=== PATIENT | male | born 1970 | race Caucasian/White ===

== ENCOUNTER → 2016-09-21 | Emergency (ER) | payer OTHER ==
--- NOTE | 2016-09-22 18:16 | ED MAR SUMMARY ---
..... Medication Administration Record [facility] [address] [place] [id number] Patient: JANETT MCPHERSON Visit ID: [id number] 46y, M Weight: 70.3 kg Height/Length: 66 in BMI: 25 ALLERGIES: No Known Drug Allergy
--- NOTE | 2016-09-22 18:16 | ED MED RECONCILIATION SUMMARY ---
Patient: JANETT MCPHERSON Medication Reconciliation Report [facility] VisitID: [id number] [address] [place] [address] 46y, M Registration Date/Time: 09/21/2016 Weight: 70.3 kg Height/Length: 66 in. BMI: 25.0 ALLERGIES: No Known Drug Allergy The patient's Home Medications are listed below: THE FOLLOWING MEDICATIONS NEED TO BE RECONCILED: Albuterol Sulfate HFA Inhalation The source(s) of the original Home Medication information: patient The following Medications were given to the patient in the Emergency Department: None. The following Medications were prescribed to the patient: None.
--- NOTE | 2016-09-22 18:16 | ED NURSING NOTES ---
Clinical Report - Nurses [facility] [address] [place] [address] 09/21/2016 17:24 Patient: JANETT MCPHERSON TRIAGE Triage time 17:58. Acuity: LEVEL 3. Chief Complaint: INJURY TO LEFT ELBOW. Alert. YAMILEX COMA SCORE: Yamilex Coma Scale: 15- eyes open spontaneously (4); best verbal response- oriented x 4 (5); best motor response- obeys commands (6). --18:04 Ysabel Campos R.N. 17:58 09/21/16. BP: 120/72. HR: 80. RR: 18. O2 saturation: 98%. Temp: 98.6 F (oral). Pain level now: 12/12. --18:04 Ysabel Campos R.N. Weight: 70.3 kg stated. Height/Length: 66 inches Per Patient. BMI: 25. --18:02 Ysabel Campos R.N. Medications Albuterol Sulfate HFA Inhalation. --18:00 Ysabel Campos R.N. Medication/allergy information source: the patient. --18:04 Ysabel Campos R.N. Allergies No Known Drug Allergy. --18:00 Ysabel Campos R.N. History Arrived by private vehicle. Historian: patient. Accompanied by family. Primary physician (none). This occurred today. He probably has foreign material (possible 2 inch lee limb in elbow). PAST MEDICAL HX: Tetanus status: more than 5 years ago. SOCIAL HX: Heavy tobacco smoker- less than 1 pack per day. History of drug use: marijuana. No alcohol use. FALL RISK ASSESSMENT: Fall risk assessment completed. No fall risk identified. FUNCTIONAL ASSESSMENT: Functional assessment: no impairments noted. LEARNING NEEDS ASSESSMENT: The learning needs assessment revealed no barriers. --18:04 Ysabel Campos R.N. PROBLEMS: Psychosis. Substance Abuse. Pancreatitis. URI. Otitis Media. Abrasion(s). Contusion. Lung Disease. Tetanus Status. Bronchitis. Lifestyle / Substance Problems. Anxiety Reaction. Asthma. Bipolar Disorder. --18:02 Ysabel Campos R.N. ADDITIONAL SURGERIES: Abdominal Hernia Repair. Hernia Repair. Umbilical Hernia Repair. --18:02 Ysabel Campos R.N. Assessment GENERAL / NEURO / PSYCH: The patient is awake and alert, is oriented and cooperative and appears uncomfortable. He has poor eye contact. RESPIRATORY: Respirations not labored. SKIN: Skin is warm and dry. --18:04 Ysabel Campos R.N. Interventions ID band on patient. To waiting room. --18:04 Ysabel Campos R.N. DISPOSITION / DISCHARGE Departure time: 0. The patient left the Emergency Department without being seen by a physician. The patient appears to be alert and oriented x4 (pt walked out of the triage room and apparently left the building). Unable to locate patient. He stated is leaving the ED (unknown). Patient left without signing form prior to leaving. He left the Emergency Department ambulatory. ( pt was told there would be a wait due to a full ED, he walked out of the triage room with his daughter, within 5 minutes a nurse went to the waiting room to take him back, he could not be found, he was called twice and I even went to the to look for him). --18:15 Ysabel Campos R.N. Locked/Released at 09/22/2016 18:16 by Ysabel Campos R.N.
--- NOTE | 2016-09-22 18:16 | ED NURSING NOTES ---
Clinical Report - Nurses [facility] [address] [place] [address] 09/21/2016 17:24 Patient: JANETT MCPHERSON TRIAGE Triage time 17:58. Acuity: LEVEL 3. Chief Complaint: INJURY TO LEFT ELBOW. Alert. YAMILEX COMA SCORE: Yamilex Coma Scale: 15- eyes open spontaneously (4); best verbal response- oriented x 4 (5); best motor response- obeys commands (6). --18:04 Ysabel Campos R.N. 17:58 09/21/16. BP: 120/72. HR: 80. RR: 18. O2 saturation: 98%. Temp: 98.6 F (oral). Pain level now: 12/12. --18:04 Ysabel Campos R.N. Weight: 70.3 kg stated. Height/Length: 66 inches Per Patient. BMI: 25. --18:02 Ysabel Campos R.N. Medications Albuterol Sulfate HFA Inhalation. --18:00 Ysabel Campos R.N. Medication/allergy information source: the patient. --18:04 Ysabel Campos R.N. Allergies No Known Drug Allergy. --18:00 Ysabel Campos R.N. History Arrived by private vehicle. Historian: patient. Accompanied by family. Primary physician (none). This occurred today. He probably has foreign material (possible 2 inch lee limb in elbow). PAST MEDICAL HX: Tetanus status: more than 5 years ago. SOCIAL HX: Heavy tobacco smoker- less than 1 pack per day. History of drug use: marijuana. No alcohol use. FALL RISK ASSESSMENT: Fall risk assessment completed. No fall risk identified. FUNCTIONAL ASSESSMENT: Functional assessment: no impairments noted. LEARNING NEEDS ASSESSMENT: The learning needs assessment revealed no barriers. --18:04 Ysabel Campos R.N. PROBLEMS: Psychosis. Substance Abuse. Pancreatitis. URI. Otitis Media. Abrasion(s). Contusion. Lung Disease. Tetanus Status. Bronchitis. Lifestyle / Substance Problems. Anxiety Reaction. Asthma. Bipolar Disorder. --18:02 Ysabel Campos R.N. ADDITIONAL SURGERIES: Abdominal Hernia Repair. Hernia Repair. Umbilical Hernia Repair. --18:02 Ysabel Campos R.N. Assessment GENERAL / NEURO / PSYCH: The patient is awake and alert, is oriented and cooperative and appears uncomfortable. He has poor eye contact. RESPIRATORY: Respirations not labored. SKIN: Skin is warm and dry. --18:04 Ysabel Campos R.N. Interventions ID band on patient. To waiting room. --18:04 Ysabel Campos R.N. DISPOSITION / DISCHARGE Departure time: 0. The patient left the Emergency Department without being seen by a physician. The patient appears to be alert and oriented x4 (pt walked out of the triage room and apparently left the building). Unable to locate patient. He stated is leaving the ED (unknown). Patient left without signing form prior to leaving. He left the Emergency Department ambulatory. ( pt was told there would be a wait due to a full ED, he walked out of the triage room with his daughter, within 5 minutes a nurse went to the waiting room to take him back, he could not be found, he was called twice and I even went to the to look for him). --18:15 Ysabel Campos R.N. Locked/Released at 09/22/2016 18:16 by Ysabel Campos R.N.
--- NOTE | 2016-09-22 18:16 | ED MED RECONCILIATION SUMMARY ---
Patient: JANETT MCPHERSON Medication Reconciliation Report [facility] VisitID: [id number] [address] [place] [address] 46y, M Registration Date/Time: 09/21/2016 Weight: 70.3 kg Height/Length: 66 in. BMI: 25.0 ALLERGIES: No Known Drug Allergy The patient's Home Medications are listed below: THE FOLLOWING MEDICATIONS NEED TO BE RECONCILED: Albuterol Sulfate HFA Inhalation The source(s) of the original Home Medication information: patient The following Medications were given to the patient in the Emergency Department: None. The following Medications were prescribed to the patient: None.
--- NOTE | 2016-09-22 18:16 | ED MAR SUMMARY ---
..... Medication Administration Record [facility] [address] [place], [place] [id number] Patient: JANETT MCPHERSON Visit ID: [id number] 46y, M Weight: 70.3 kg Height/Length: 66 in BMI: 25 ALLERGIES: No Known Drug Allergy
== END ==
LOC: ED SRH 17:23
DX: Z53.21 Procedure and treatment not carried out due to patient leaving prior to being seen by health care provider (principal)